=== PATIENT | male | born 1960 | race Caucasian/White ===

== ENCOUNTER 2018-06-28 15:36 | Emergency (ER) | payer BC ==
[2018-06-28 15:43] VITALS: BP 127/66
--- NOTE | 2018-06-28 15:52 | EDM.PDOC ---
ED HPI GENERAL MEDICAL PROBLEM - General Chief Complaint: Respiratory Problem Stated Complaint: CHEST CONGESTION, cough x 1 month. Was seen in clinic about 1 week ago and prescribed antibiotic but pt. now sure which antibiotic. He states he did finish antibiotic but is not taking anything for cough. Has never smoked. Time Seen by Provider: 06/28/18 15:50 Source of Information: Reports: Patient History Limitations: Reports: No Limitations - History of Present Illness Onset: Gradual Onset Date: 06/01/18 Duration: Intermittent Improves with: Reports: None Worsens with: Reports: None Associated Symptoms: Reports: Cough - Related Data Allergies Allergy/AdvReac Type Severity Reaction Status Date / Time Penicillins Allergy Fever Verified 06/28/18 15:43 Home Meds: Home Meds . [No Known Home Meds] 09/06/16 [History] Social & Family History - Tobacco Use Smoking Status *Q: Never Smoker ED ROS GENERAL - Review of Systems Review Of Systems: See Below Constitutional: Reports: No Symptoms HEENT: Reports: No Symptoms Respiratory: Reports: Cough, Sputum Cardiovascular: Reports: No Symptoms Endocrine: Reports: No Symptoms GI/Abdominal: Reports: No Symptoms : Reports: No Symptoms Musculoskeletal: Reports: No Symptoms Skin: Reports: No Symptoms Neurological: Reports: No Symptoms Psychiatric: Reports: No Symptoms Hematologic/Lymphatic: Reports: No Symptoms Immunologic: Reports: No Symptoms ED EXAM, GENERAL - Physical Exam Exam: See Below Exam Limited By: No Limitations General Appearance: Alert, WD/WN, No Apparent Distress Nose: Normal Inspection, Normal Mucosa, No Blood Throat/Mouth: Normal Inspection, Normal Lips, Normal Teeth, Normal Gums, Normal Oropharynx, Normal Voice Head: Atraumatic, Normocephalic Neck: Normal Inspection, Supple, Non-Tender, Full Range of Motion Respiratory/Chest: No Respiratory Distress, Lungs Clear, Normal Breath Sounds, No Accessory Muscle Use, Chest Non-Tender Cardiovascular: Normal Peripheral Pulses, Regular Rate, Rhythm, No Edema, No Gallop, No JVD, No Murmur, No Rub Extremities: Normal Inspection, Normal Range of Motion, Non-Tender, No Pedal Edema, Normal Capillary Refill Neurological: Alert, Oriented, CN II-XII Intact, Normal Cognition, Normal Gait, No Motor/Sensory Deficits Psychiatric: Normal Affect, Normal Mood Skin Exam: Warm, Dry, Intact, Normal Color Course - Vital Signs Text/Narrative:: Stable , minimal coughing. Last Recorded V/S: Last Vital Signs Temp 35.7 C 06/28/18 15:37 Pulse 66 06/28/18 15:37 Resp 18 06/28/18 15:37 BP 127/66 06/28/18 15:37 Pulse Ox 97 06/28/18 15:37 - Orders/Labs/Meds Orders: Active Orders 24 hr Category Date Time Status Chest 2V [CR] Stat Exams 06/28/18 15:50 Taken - Radiology Interpretation Free Text/Narrative:: CXR: negative. Discussed findings with patient. Departure - Departure Time of Disposition: 17:12 Disposition: Home, Self-Care 01 Condition: Good Clinical Impression: Cough - Discharge Information *PRESCRIPTION DRUG MONITORING PROGRAM REVIEWED*: Not Applicable *COPY OF PRESCRIPTION DRUG MONITORING REPORT IN PATIENT [facility]: Not Applicable Forms: ED Department Discharge Additional Instructions: Get Mucinex DM OTC. Take medications as directed. Follow up with PCP if cough doesn't resolve. - Problem List & Annotations (1) Cough SNOMED Code(s): 68724640 Code(s): R05 - COUGH Status: Acute - Problem List Review Problem List Initiated/Reviewed/Updated: Yes - My Orders Last 24 Hours: My Active Orders 06/28/18 15:50 Chest 2V [CR] Stat - Assessment/Plan Last 24 Hours: My Active Orders 06/28/18 15:50 Chest 2V [CR] Stat Assessment:: Cough Plan: Advised patient to get Mucinex DM OTC. Given prescription for Tesslon pearles. Follow up with PCP as needed.
== END 2018-06-28 17:18 | disposition home or self-care (01) ==
LOC: CC.ED 15:36
DX: R05 Cough (principal); Z88.0 Allergy status to penicillin
CPT/HCPCS: 71046; 99283